=== PATIENT | female | born 1955 | race Caucasian/White ===

== ENCOUNTER 2018-08-21 12:02 | Day surgery (SDC) | payer OTHER ==
[2018-08-21] MEDS ORDERED: PROPOFOL 40 ML (14:38)
== END 2018-08-21 15:17 | disposition home or self-care (01) ==
LOC: GIL 12:02
DX: I85.00 Esophageal varices without bleeding (principal); K76.6 Portal hypertension; K31.89 Other diseases of stomach and duodenum; K44.9 Diaphragmatic hernia without obstruction or gangrene; K26.9 Duodenal ulcer, unspecified as acute or chronic, without hemorrhage or perforation; E03.9 Hypothyroidism, unspecified
CPT/HCPCS: 43239